=== PATIENT | female | born 1970 | race Caucasian/White ===

== ENCOUNTER 2020-10-26 11:54 | Emergency (ER) | payer OTHER, SELFPAY ==
[2020-10-26 11:59] VITALS: BP 156/108; PULSE 73; RESP 18; TEMP 36.3; O2SAT 100
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
[2020-10-26] MEDS: KETOROLAC (*BKC) 60 MG/2 ML VIAL IM (13:10)
== END 2020-10-26 15:12 | disposition home or self-care (01) ==
PROVIDERS: Emergency Provider Emergency Medicine
DX: S16.1XXA Strain of muscle, fascia and tendon at neck level, initial encounter (principal); S29.012A Strain of muscle and tendon of back wall of thorax, initial encounter; V49.40XA Driver injured in collision with unspecified motor vehicles in traffic accident, initial encounter
CPT/HCPCS: 96372; 99283; J1885

== ENCOUNTER 2021-12-09 06:33 | Emergency (ER) | payer OTHER, SELFPAY ==
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
[2021-12-09 06:31] VITALS: BP 166/100; PULSE 86; RESP 23; TEMP 36.1; O2SAT 99
--- NOTE | 2021-12-09 06:52 | PC.NURSE ---
Patient taken to CT via stretcher.
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
--- NOTE | 2021-12-09 07:05 | PC.NURSE ---
Care assumed of pt at this time.
[2021-12-09 07:11] VITALS: PULSE 86; RESP 18; O2SAT 99
--- NOTE | 2021-12-09 08:14 | PC.NURSE ---
C-collar removed with verbal permission from Dr. Fisher
[2021-12-09 08:52] VITALS: BP 165/98; PULSE 78; RESP 18; O2SAT 98
== END 2021-12-09 08:52 | disposition home or self-care (01) ==
PROVIDERS: Emergency Provider Emergency Medicine
DX: S16.1XXA Strain of muscle, fascia and tendon at neck level, initial encounter (principal); V40.5XXA Car driver injured in collision with pedestrian or animal in traffic accident, initial encounter; M47.812 Spondylosis without myelopathy or radiculopathy, cervical region
CPT/HCPCS: 71045; 72125; 99284